=== PATIENT | female | born 1940 | race Two or more races ===

== ENCOUNTER 2017-10-08 00:30 | Emergency (ER) | payer MEDICARE, MEDICAID ==
[~2017-10-08] VITALS: Ht 165.1 cm; Wt 102.1 kg
[~2017-10-08 00:30] MED LIST: ALLO100T PO; ASPI-1152 PO; BLOO-668 IN; CARV25TA2 PO; DEXL60CA3 PO; ERGO500014 PO; FERR325T28 PO; FOLI0.8T2 PO; FURO40TA5 PO; HYDR-4076 PO; HYDR25TA4 PO; INSU100I19 SQ; INSU100V27 SQ; LOSA25TA13 PO; ZONI100C6 PO
[2017-10-08 00:38] VITALS: BP 146/75
[2017-10-08] MEDS ORDERED: GELATIN SPONGE,ABSORBABLE 1 SPONGE SPONGE TP ONE ×2 (00:48→01:51)
[2017-10-08] MEDS ORDERED: LIDOCAINE 1%-EPI 1:200,000 SDV 10 ML VIAL IJ ONE (01:00)
[2017-10-08] MEDS ORDERED: TDAP [DIPH/PERTUSSIS/TET] 0.5 ML VIAL IM ONE ×2 (01:04→02:00)
[2017-10-08] MEDS ORDERED: LIDOCAINE 1%-EPI 1:100,000 20 ML VIAL ONE (01:05)
--- NOTE | 2017-10-08 01:45 | NUR ---
PT SUTURED BY MD TRACY AND WOUND CARE PERFORMED. PT WHEELCHAIRED OUT BY ANKIT ANGEL TO THE CAR. VSS DURING DISCHARGE.
== END 2017-10-08 02:39 | disposition home or self-care (01) ==
LOC: ER 00:31
DX: S81.812A Laceration without foreign body, left lower leg, initial encounter (principal); I87.2 Venous insufficiency (chronic) (peripheral); K44.9 Diaphragmatic hernia without obstruction or gangrene; I10 Essential (primary) hypertension; E11.9 Type 2 diabetes mellitus without complications; Z88.1 Allergy status to other antibiotic agents; Z79.4 Long term (current) use of insulin; Z79.82 Long term (current) use of aspirin; W22.8XXA Striking against or struck by other objects, initial encounter; Y93.89 Activity, other specified; Y92.89 Other specified places as the place of occurrence of the external cause; Y99.8 Other external cause status
CPT/HCPCS: 90715; A4606; A6402; A6403; J3490; Z7610

== ENCOUNTER 2017-10-15 20:19 | Emergency (ER) | payer MEDICARE, MEDICAID ==
[~2017-10-15] VITALS: Ht 165.1 cm; Wt 127.0 kg
[2017-10-15 20:29] VITALS: BP 177/72
== END 2017-10-15 20:45 | disposition home or self-care (01) ==
LOC: ER 20:21
DX: S81.812D Laceration without foreign body, left lower leg, subsequent encounter (principal); E11.9 Type 2 diabetes mellitus without complications; I10 Essential (primary) hypertension; K44.9 Diaphragmatic hernia without obstruction or gangrene; Z79.4 Long term (current) use of insulin; Z79.82 Long term (current) use of aspirin; Z98.890 Other specified postprocedural states; Z88.1 Allergy status to other antibiotic agents
CPT/HCPCS: A4606; Z7502; Z7610

== ENCOUNTER 2018-06-29 19:35 | Inpatient (IN) | payer MEDICARE, MEDICAID ==
[~2018-06-29] VITALS: Ht 160 cm; Wt 80.8 kg
[~2018-06-29 19:35] MED LIST changes: -LOSA25TA13 PO; +LOSA25TA27 PO
--- NOTE | 2018-06-29 19:43 | NUR ---
PT LOU FROM [facility] FOR CATH CHANGE/HD, VS PLACED IN ER BED 1, SEEN AND EVAL DONE BY ER MD GOSS, WITH TX ORDERS ENTERED. WILL CONT' TO MONITOR.
[2018-06-29 20:16] LABS: BASOPHILS # (AUTO) 0.1 /CMM (0.0-0.2); BASOPHILS % (AUTO) 0.8 % (0.0-2.0); EOSINOPHILS % (AUTO) 0.5 % (0.0-6.0); HEMATOCRIT 36 % (33-45); HEMOGLOBIN 11.3 g/dL (11.5-14.8); LYMPHOCYTES # (AUTO) 2.6 /CMM (0.8-4.8); LYMPHOCYTES % (AUTO) 21.7 % (20.0-44.0); MEAN CORPUSCULAR HGB CONC 31 g/dl (31.0-36.0); MEAN CORPUSCULAR VOLUME 93 fL (82-100); MONOCYTES # (AUTO) 0.9 /CMM (0.1-1.30); MONOCYTES % (AUTO) 7.2 % (2.0-12.0); NEUTROPHILS # (AUTO) 8.4 /CMM (1.8-8.9); NEUTROPHILS % (AUTO) 69.8 % (43.0-81.0); PLATELET COUNT (AUTO) 399 /CMM (150-450); RED BLOOD CELL COUNT(AUTO) 3.89 MIL/uL (4.0-5.2)
[2018-06-29 20:32] LABS: ALANINE AMINOTRANSFERASE 22 U/L (12-78); ALBUMIN 2.4 g/dL (3.4-5.0); ALKALINE PHOSPHATASE 126 U/L (46-116); ASPARTATE AMINOTRANSFERASE 26 U/L (15-37); BILIRUBIN,DIRECT 0.1 mg/dL (0.0-0.2); BILIRUBIN,TOTAL 0.3 mg/dL (0.2-1.0); CALCIUM, SERUM 9.1 mg/dL (8.5-10.1); CARBON DIOXIDE 28 mmol/L (21-32); CHLORIDE 93 mmol/L (98-107); CREATININE 5.5 mg/dL (0.6-1.3); GLUCOSE 150 mg/dL (74-106); SODIUM SERUM 134 mmol/L (136-145); TOTAL PROTEIN, SERUM 7.8 g/dL (6.4-8.2); UREA NITROGEN, BLOOD 40 mg/dL (7-18)
--- NOTE | 2018-06-29 21:01 | NUR ---
PAGED MD MADRID REGARDING ORDERS FOR THIS PATIENT.
[2018-06-29] MEDS ORDERED: ACETAMINOPHEN ES 500 MG TABLET PO ONE (22:00)
--- NOTE | 2018-06-29 22:00 | NUR ---
ADMIT TO 325-1 [facility] DX MALFUNCTIONING DIALYSIS CATH ACCEPTED BY [facility]
--- NOTE | 2018-06-29 22:26 | NUR ---
CALLED FOR REPORT, PT TO BE PLACED IN RM 325-1 REPORT GIVEN TO BRAYAN DILLARD.
--- NOTE | 2018-06-29 22:30 | NUR ---
MS RN NOTE RECEIVED PT IN STABLE CONDITION. A&O X3-4, PRIMARILY BARBADIAN SPEAKING, ABLE TO UNDERSTAND NEPALI. PT IS CURRENTLY ON RA TOLERATING WELL WITH O2 SAT OF 93%. PT IS RESTING COMFORTABLY IN BED, EASILY TO WAKE. NO SIGNS OF SOB OR DISTRESS. IV IN L WRIST 22G INTACT AND PATENT H/L. BODY CHECK DONE WITH PHOTOS IN CHART. BELONGINGS ACCOUNTED AND SIGNED FOR, PLACED IN CHART. SAFETY MEASURES IN PLACE: BED LOW, LOCKED, UPPER RAILS UP, AND CALL LIGHT WITHIN REACH. WILL CONT TO MONITOR.
[2018-06-29 22:35] VITALS: BP 125/52
--- NOTE | 2018-06-29 23:02 | NUR ---
MS RN NOTE CALLED DR. KINCAID, SPOKE WITH EDMUNDO TO LEAVE A MESSAGE FOR FOR ORDERS. AWAITING RETURN CALL FROM .
--- NOTE | 2018-06-29 23:15 | NUR ---
MS RN NOTE RECEIVED RETURN CALL FROM DR. MADRID. STATED HE WILL PUT ORDERS IN. AWAITING ORDERS IN COMPUTER. WILL CONT TO MONITOR PT.
[2018-06-29] MEDS ORDERED: NUT.237L67 PO (23:24)
[2018-06-29] MEDS ORDERED: AMLO5TAB9 PO (23:24)
[2018-06-29] MEDS ORDERED: CLOP75TA15 PO (23:24)
[2018-06-29] MEDS ORDERED: DOCU-141 PO (23:24)
[2018-06-29] MEDS ORDERED: ATOR10TA PO (23:24)
[2018-06-29] MEDS ORDERED: METO5TAB7 PO (23:24)
--- NOTE | 2018-06-29 23:25 | NUR ---
MS RN NOTE ONE TIME DOSE TO TYLENOL 1000 MG GIVEN TO PT FOR PAIN IN SACRAL AREA. WILL CONT TO MONITOR PT.
--- NOTE | 2018-06-29 23:38 | NUR ---
RESOURCE RN NOTES: PT A/O X3, UZBEK SPEAKING, SPEAK AND UNDERSTAND BASIC SAUDI ARABIAN. ADMITTED TO THE UNIT FOR HD CATH MALFUNCTION. PT LIV[facility] IN [facility]. ADMISSION DOCUMENTATION COMPLETED (INTERVIEW THE PT AND BY USING PAPER WORKS FROM FACILITY). VACCINATION STATUS UP TO DATE. ASSIGNED RN TO COMPLETE INITIAL PHYSICAL ASSESSMENT. MD NOTIFIED FOR ADMISSION ORDERS.
--- NOTE | 2018-06-30 07:02 | NUR ---
MS RN NOTE RECEIVED PT IN STABLE CONDITION. A&O X3-4, PRIMARILY VIETNAMESE SPEAKING, ABLE TO UNDERSTAND ANDORRAN. PT IS CURRENTLY ON RA TOLERATING WELL WITH O2 SAT OF 93%. PT IS RESTING COMFORTABLY IN BED, EASY TO WAKE. NO SIGNS OF SOB OR DISTRESS. IV IN L WRIST 22G INTACT AND PATENT H/L. SAFETY MEASURES IN PLACE: BED LOW, LOCKED, UPPER RAILS UP, AND CALL LIGHT WITHIN REACH. WILL CONT TO MONITOR AND ENDORSE TO NEXT SHIFT FOR TEJAS.
[2018-06-30] MEDS: BLOOD SUGAR DIAGNOSTIC 1 EACH STRIP IN SCH ×4 (07:09→22:07)
--- NOTE | 2018-06-30 07:15 | NUR ---
MS RN OPENING NOTE RECEIVED PATIENT IN BED. SLEEPING, EASILY AROUSED WITH VERBAL STIMULI, ORIENTED X3. ON ROOM AIR, TOLERATING WELL. IN NO APPARENT DISTRESS OR DISCOMFORT AT THIS TIME. RESPIRATIONS EVEN AND UNLABORED. DENIES PAIN AND SOB. PATIENT IS [place] CITIZEN SPEAKING ABLE TO COMMUNICATE NEEDS. LEFT WRIST 22G IVC, SL, PATENT AND INTACT. PATIENT KEPT CLEAN AND COMFORTABLE. SAFETY MEASURES IN PLACE, BED IN LOW LOCKED POSITION, ALARM ON, SIDE RAILS UP X2. CALL LIGHT WITHIN EASY REACH, WILL CONTINUE TO MONITOR.
[2018-06-30] MEDS: INSULIN ASPART/LISPRO 100 UNIT/ML CARTRIDGE SQ SCH ×3 (07:30→16:58)
[2018-06-30 08:00] VITALS: BP 128/68
[2018-06-30] MEDS: VIT B CMPLX 3/FA/VIT C/BIOTIN 1 TAB TABLET PO SCH (08:56)
[2018-06-30] MEDS: CLOPIDOGREL BISULFATE 75 MG TABLET PO SCH (08:57)
[2018-06-30] MEDS: PANTOPRAZOLE 40 MG TABLET.DR PO SCH (08:57)
[2018-06-30] MEDS: FERROUS SULFATE (325 MG) 325 MG/TAB TABLET PO SCH ×3 (08:57→17:00)
[2018-06-30] MEDS: AMLODIPINE BESYLATE 5 MG TABLET PO SCH (08:59)
[2018-06-30] MEDS: ALLOPURINOL 100 MG TABLET PO SCH (08:59)
[2018-06-30] MEDS ORDERED: Medication Not On Formulary EA (Folic Acid/Vitamin B Comp W-C (Nephro-Vite Tablet) 0.8 M PO SCH (09:00)
[2018-06-30] MEDS: ASPIRIN EC 81 MG TABLET.DR PO SCH (09:00)
[2018-06-30] MEDS: LOSARTAN POTASSIUM 25 MG TABLET PO SCH (09:00)
[2018-06-30] MEDS: FUROSEMIDE 40 MG TABLET PO SCH (09:00)
[2018-06-30] MEDS: CARVEDILOL 3.125 MG TABLET PO SCH ×2 (09:00→17:02)
[2018-06-30] MEDS: hydrALAZINE HCL 25 MG TABLET PO SCH ×2 (09:00→16:53)
[2018-06-30] MEDS: HYDROCHLOROTHIAZIDE 25 MG TABLET PO SCH (09:10)
[2018-06-30] MEDS ORDERED: ALTEPLASE CATHFLO 2 MG/VIAL IV ONE (10:30)
--- NOTE | 2018-06-30 10:54 | NUR ---
CATHFLOW ACTIVASE GIVEN BY DIALYSIS NURSE.
--- NOTE | 2018-06-30 12:00 | NUR ---
PATIENT'S BLOOD GLUCOSE 110. HELD SCHEDULED 6 UNITS OF NOVOLOG AT THIS TIME. WILL CONTINUE TO MONITOR.
[2018-06-30] MEDS: NEPRO VAN 237 ML CAN PO SCH (12:31)
[2018-06-30 16:00] VITALS: BP 127/62
[2018-06-30] MEDS: ATORVASTATIN 10 MG TABLET PO SCH ×2 (17:02→17:12)
--- NOTE | 2018-06-30 17:03 | NUR ---
PATIENT'S EVENING BP MEDICATIONS HELD PATIENT IS CURRENTLY STARTING TO RECEIVED DIALYSIS. BP 127/62. WILL CONTINUE TO MONITOR. Addendum: 06/30/18 at 1713 by JAYLA NELSON RN PATIENT'S EVENING PO MEDICATIONS HELD DUE TO PATIENT RECEIVING DIALYSIS AT THIS TIME.
--- NOTE | 2018-06-30 18:51 | NUR ---
PATIENT RECEIVED DIALYSIS, REPORTED 1L OUT BY PATIENT CASE COORDINATOR. PATIENT IS STABLE. IN NO APPARENT DISTRESS OR DISCOMFORT. BP IS 110/46 AT THIS TIME. WILL CONTINUE TO MONITOR.
--- NOTE | 2018-06-30 18:53 | NUR ---
MS RN CLOSING NOTE PATIENT IN BED. ALERT ORIENTED X3. SLOW RESPONSE TO QUESTIONS. INDONESIAN SPEAKING. ON ROOM AIR, TOLERATING WELL. IN NO APPARENT DISTRESS OR DISCOMFORT AT THIS TIME. RESPIRATIONS EVEN AND UNLABORED. DENIES PAIN AND SOB. PATIENT IS ABLE TO COMMUNICATE NEEDS IN INDONESIAN. LEFT WRIST 22G IVC, SL, PATENT AND INTACT. PATIENT KEPT CLEAN AND COMFORTABLE. ALL NEED ATTENDED, SAFETY MEASURES IN PLACE, BED IN LOW LOCKED POSITION, ALARM ON, SIDE RAILS UP X2. CALL LIGHT WITHIN EASY REACH, WILL ENDORSE TO PM NURSE FOR TEJAS.
--- NOTE | 2018-06-30 19:15 | NUR ---
MS RN NOTES RECEIVED ON BED EATING HER DINNER FOOD ASSISTED BY MARKIE GERMAN.A/O X3 ABLE TO VERBALIZED NEEDS.RIGHT CHEST WALL HD CATHETER WORKS WELL,S/P HD TODAY,1LITER OUT.WITH SALINE LOCK LEFT WRIST INTACT AND PATENT.WITH SACRAL WOUND NOTED,COVERED WITH MEPILEX.WILL CONTINUE TO MONITOR STATUS.
[2018-06-30 20:00] VITALS: BP 151/76
[2018-06-30] MEDS ORDERED: DOCUSATE SODIUM 100 MG CAPSULE PO SCH (22:00)
[2018-06-30] MEDS ORDERED: INSULIN GLARGINE, 100 UNIT/ML CARTRIDGE SQ SCH (22:00)
[2018-06-30] MEDS ORDERED: ZONISAMIDE 100 MG CAPSULE PO SCH (22:00)
[2018-06-30] MEDS ORDERED: INSULIN DETEMIR 100 UNIT/ML CARTRIDGE SQ SCH (22:00)
--- NOTE | 2018-06-30 22:00 | NUR ---
MS RN NOTES ACCU-CHECK BLOOD SUGAR CHECK 103,OFFERED LANTUS 17 UNITS,PATIENT REFUSED,ALONG WITH OTHER NIGHT DUE PO MEDS,COLACE AND ZONEGRAM
--- NOTE | 2018-06-30 23:00 | NUR ---
MS RN NOTES [facility] MATTRESS IN PLACE AT THIS TIME,REPOSITION ORDERED.
[2018-07-01] MEDS: BLOOD SUGAR DIAGNOSTIC 1 EACH STRIP IN SCH ×2 (05:40→12:03)
--- NOTE | 2018-07-01 06:00 | NUR ---
MS RN NOTES ACCU-CHECK BLOOD SUGAR CHECK 116,WITH NOVOLOG COVERAGE Q AM.
--- NOTE | 2018-07-01 06:19 | NUR ---
MS RN NOTES NO SIGNIFICANT CHANGE IN STATUS.REPOSITION PER PROTOCOL,AWAITING TO BE SEEN BY WOUND CARE NURSE FOR SACRAL WOUND EVALUATION.IN NO ACUTE DISTRESS.WILL ENDORSE TO DAY NURSE FOR TEJAS.
--- NOTE | 2018-07-01 07:25 | NUR ---
MS RN INITIAL NOTES Report received at bedside. Patient received in bed, intermittently sleeping, easily aroused. On LOUISA mattress. No SOB noted. Not in any type of distress. Safety measures in place. Will continue to monitor and assess patient.
[2018-07-01] MEDS: INSULIN ASPART/LISPRO 100 UNIT/ML CARTRIDGE SQ SCH ×2 (07:30→12:04)
[2018-07-01 07:33] LABS: BASOPHILS # (AUTO) 0.1 /CMM (0.0-0.2); BASOPHILS % (AUTO) 0.9 % (0.0-2.0); EOSINOPHILS % (AUTO) 0.8 % (0.0-6.0); HEMATOCRIT 35 % (33-45); HEMOGLOBIN 10.6 g/dL (11.5-14.8); LYMPHOCYTES # (AUTO) 1.2 /CMM (0.8-4.8); LYMPHOCYTES % (AUTO) 9.8 % (20.0-44.0); MEAN CORPUSCULAR HGB CONC 31 g/dl (31.0-36.0); MEAN CORPUSCULAR VOLUME 93 fL (82-100); MONOCYTES # (AUTO) 0.7 /CMM (0.1-1.30); MONOCYTES % (AUTO) 5.7 % (2.0-12.0); NEUTROPHILS # (AUTO) 10.3 /CMM (1.8-8.9); NEUTROPHILS % (AUTO) 82.8 % (43.0-81.0); PLATELET COUNT (AUTO) 375 /CMM (150-450); RED BLOOD CELL COUNT(AUTO) 3.72 MIL/uL (4.0-5.2); WHITE BLOOD COUNT (AUTO) 12.4 K/uL (4.3-11.0)
[2018-07-01] MEDS: PANTOPRAZOLE 40 MG TABLET.DR PO SCH (07:39)
[2018-07-01 07:43] LABS: CALCIUM, SERUM 8.7 mg/dL (8.5-10.1); CARBON DIOXIDE 28 mmol/L (21-32); CHLORIDE 96 mmol/L (98-107); GLUCOSE 130 mg/dL (74-106); POTASSIUM 3.8 mmol/L (3.5-5.1); SODIUM SERUM 135 mmol/L (136-145); UREA NITROGEN, BLOOD 35 mg/dL (7-18)
[2018-07-01] MEDS: CARVEDILOL 3.125 MG TABLET PO SCH (07:43)
--- NOTE | 2018-07-01 07:48 | NUR ---
MS RN - REFUSAL NOTES Patient refused morning insulin coverage. Explained risks vs benefits x3 but continue to refuse. Will monitor Nurse Navigator: Nicol
[2018-07-01 08:00] VITALS: BP 146/92
[2018-07-01] MEDS: hydrALAZINE HCL 25 MG TABLET PO SCH (09:03)
[2018-07-01] MEDS: VIT B CMPLX 3/FA/VIT C/BIOTIN 1 TAB TABLET PO SCH (09:03)
[2018-07-01] MEDS: AMLODIPINE BESYLATE 5 MG TABLET PO SCH (09:03)
[2018-07-01] MEDS: ASPIRIN EC 81 MG TABLET.DR PO SCH (09:03)
[2018-07-01] MEDS: FUROSEMIDE 40 MG TABLET PO SCH (09:04)
[2018-07-01] MEDS: CLOPIDOGREL BISULFATE 75 MG TABLET PO SCH (09:04)
[2018-07-01] MEDS: LOSARTAN POTASSIUM 25 MG TABLET PO SCH (09:04)
[2018-07-01] MEDS: FERROUS SULFATE (325 MG) 325 MG/TAB TABLET PO SCH (09:04)
[2018-07-01] MEDS: HYDROCHLOROTHIAZIDE 25 MG TABLET PO SCH (09:04)
[2018-07-01] MEDS: ALLOPURINOL 100 MG TABLET PO SCH (09:04)
--- NOTE | 2018-07-01 09:19 | NUR ---
WOUND CARE CONSULT: PT PRESENTS WITH UNSTAGEABLE SACRAL ULCER, PRESENT ON ADMISSION. PT ON FIRST STEP [facility]. RECOMMEND SURGICAL CONSULT. RECOMMENDATIONS MADE FOR SKIN PROTECTION AND WOUND CARE. DISCUSSED WITH NURSING STAFF. WILL SEE PRN. GRESAHM IN AGREEMENT WITH PLAN OF CARE. CURRENT LESIA SCORE IS 11. Addendum: 07/01/18 at 0921 by ANJELICA KILLIAN WNDNU Amended: Links added.
[2018-07-01] MEDS ORDERED: HYDROGEL DRESSING 90 GM TUBE TP PRN (09:30)
[2018-07-01] MEDS ORDERED: Z GUARD REMEDY 2 OZ OINT TP SCH (09:30)
[2018-07-01] MEDS ORDERED: Z GUARD REMEDY 2 OZ OINT TP PRN (09:30)
[2018-07-01] MEDS ORDERED: HYDROGEL DRESSING 90 GM TUBE TP SCH (09:30)
[2018-07-01] MEDS: NEPRO VAN 237 ML CAN PO SCH (09:42)
[2018-07-01 10:56] LABS: BAND % (MANUAL) 1 % (0.0-5.0); LYMPHOCYTES % (MANUAL) 14 % (16-48); METAMYELOCYTES % 1 % (0-0); MONOCYTES % (MANUAL) 12 % (0-11.0); MYELOCYTES % 1 % (0-0); NEUTROPHILS % (MANUAL) 71 (42-76)
[2018-07-01] MEDS ORDERED: LIDOCAINE 1%-EPI 1:100,000 20 ML VIAL TP ONE (12:00)
--- NOTE | 2018-07-01 12:23 | NUR ---
MS RN - PROCEDURE NOTES Debridement consent obtained. Debridement on sacral wound done by Dr. Bahena. Photos take and placed in chart. Packed wound with wet-to-dry dressing per MD. Kept patient clean and dry.
--- NOTE | 2018-07-01 15:07 | NUR ---
MS RN - DISCHARGE NOTES Report given to Danyelle at [facility] [phone].
--- NOTE | 2018-07-01 15:10 | NUR ---
MS RN NOTES HD Nurse (Muna) called for HD order for today. Muna stated that she'll be here around 1730. Patient will be picked up by [facility] @1530. Informed charge nurse. CN said to "let patient resume schedule from facility." Informed HD nurse.
[2018-07-01 16:00] VITALS: BP 136/63
--- NOTE | 2018-07-01 16:08 | NUR ---
MS RN - DISCHARGE NOTES Patient is cleared for discharge by MD. [facility] verbalized understanding. Discharge instructions provided to patient as well. Belongings form signed by two RNs d/t patient's weakness. IV access removed: cath tip intact with no bleeding noted. Denies any pain. No signs and symptoms of distress displayed. No SOB/labored breathing noted. Sacral dressing clean and intact. Safety measures in place. Will continue to monitor and keept patient clean and dry until [facility] arrives. 135/77 87 20 97.6 99% RA
--- NOTE | 2018-07-01 16:13 | NUR ---
MS RN - DISCHARGE NOTES [facility] arrived to forklift picker patient. Spoke to Roman Lara (son) and made aware of [facility].
--- NOTE | 2018-07-01 16:24 | NUR ---
MS RN - DISCHARGE NOTES Patient left the unit via gurney accompanied by [facility] in stable condition.
[2018-07-06] MEDS ORDERED: ERGOCALCIFEROL (VITAMIN D 2) 50,000 UNIT CAPSULE PO SCH (09:00)
== END 2018-07-01 16:20 | DRG 981 ==
LOC: ER 19:37 → MED 22:20
PROVIDERS: ADMIT Internal Medicine; ATTEND Internal Medicine
PROC: 5A1D70Z Performance of Urinary Filtration, Intermittent, Less than 6 Hours Per Day (ICD-10-PCS; 2018-06-30)
PROC: 0KBP0ZZ Excision of Left Hip Muscle, Open Approach (ICD-10-PCS; principal; 2018-07-01)
PROC: 0KBN0ZZ Excision of Right Hip Muscle, Open Approach (ICD-10-PCS; 2018-07-01)
DX: T82.49XA Other complication of vascular dialysis catheter, initial encounter (principal); L89.324 Pressure ulcer of left buttock, stage 4; L89.314 Pressure ulcer of right buttock, stage 4; L89.154 Pressure ulcer of sacral region, stage 4; N18.6 End stage renal disease; I12.0 Hypertensive chronic kidney disease with stage 5 chronic kidney disease or end stage renal disease; E87.1 Hypo-osmolality and hyponatremia; E46 Unspecified protein-calorie malnutrition; Y92.129 Unspecified place in nursing home as the place of occurrence of the external cause; I89.0 Lymphedema, not elsewhere classified; I25.10 Atherosclerotic heart disease of native coronary artery without angina pectoris; E03.9 Hypothyroidism, unspecified; D72.829 Elevated white blood cell count, unspecified; E11.22 Type 2 diabetes mellitus with diabetic chronic kidney disease; E78.5 Hyperlipidemia, unspecified; K21.9 Gastro-esophageal reflux disease without esophagitis; Z86.73 Personal history of transient ischemic attack (TIA), and cerebral infarction without residual deficits; Z79.4 Long term (current) use of insulin; Z99.2 Dependence on renal dialysis; D63.1 Anemia in chronic kidney disease; I25.2 Old myocardial infarction; Q78.9 Osteochondrodysplasia, unspecified; Z68.31 Body mass index [BMI] 31.0-31.9, adult; Y84.8 Other medical procedures as the cause of abnormal reaction of the patient, or of later complication, without mention of misadventure at the time of the procedure; Z79.82 Long term (current) use of aspirin
CPT/HCPCS: 36415; 71045-TC; 80048-TC; 80076-TC; 82962-TC; 85025-TC; 85730-TC; 87081-TC; 90935-TC; A6248; A6403; G0378; J1815; J2997; J3490